=== PATIENT | female | born 1930 | race Caucasian/White ===

== ENCOUNTER → 2017-11-18 | Outpatient (CLI) | payer MEDICARE ==
[2014-04-10 16:21] VITALS: BMI 31.2
[~2017-11-18] MED LIST: ACE325 PO; ACET500T68 PO; ACYC5CRE5 TOP; AML5 PO; AMLO-96 PO; ARTO15 OP; CETI-176 PO; CETI10CA8 PO; CHOL200074 PO; CIPR-214 PO; CYCL-277 PO; CYCL-332 PO; CYCL10TA29 PO; DICL-195 PO; DICL100G3 TP; DICL100G39 TOP; DICL100G39 TP; DICL100T54 PO; DILT-100 PO; DIP25 PO; EPIN0.3P14 IM; ESCI5TAB10 PO; EST625 PO; FAMO20TA9 PO; FERR324T12 PO; FLUT12HF2 INH; HCTZ25 PO; HYDR-385 PO; IBU600 PO; INDO50CA92 PO; LANS30CA70 PO; LETR2.5T4 PO; LEV100 PO; LEVO-85 PO; LEVO100T95 PO; LIS10 PO; LOR5/325 PO; LORA-1455 PO; LORA-1456 PO; LOSA-54 PO; LOSA100T62 PO; LOSA100T67 PO; LUTE20TA PO; MELA1TAB27 PO; MELA1TAB5 ASDIRECTED; MELA5TAB6 PO; MOM BC; OLME1TAB49 PO; OMEP-218 PO; ONDA4TAB97 PO; ORPHENADRINE; OXYGENHOME INH; PAN40 PO; PANT40TA65 PO; PER PO; PIRO10CA62 PO; PRE10 PO; PRED1TAB17 PO; SULINDAC PO; TRA50 PO; TRAZ-156 PO; ULTRAM; ZESTORETIC PO; ZOLP-350 PO
[2017-11-18 13:27] LABS: PLATELET COUNT, AUTOMATED 270 K/uL (150-450)
== END ==
LOC: LAB 13:08
PROVIDERS: ATTEND Family Medicine
DX: I10 Essential (primary) hypertension (principal); E53.8 Deficiency of other specified B group vitamins; E03.9 Hypothyroidism, unspecified
CPT/HCPCS: 36415; 82040; 82247; 82310; 82374; 82435; 82565; 82607; 82947; 84075; 84132; 84155; 84295; 84443; 84450; 84460; 84520; 85025

== ENCOUNTER → 2018-07-21 | Outpatient (CLI) | payer MEDICARE ==
[2014-04-10 16:21] VITALS: BMI 31.2
[~2018-07-21] MED LIST changes: +AMLO-111 PO; +AMLO-113 PO; -AMLO-96 PO; +CLOT56.7 TOP; +FLUT16SP19 NS; -LOSA100T67 PO; +LOSA100T69 PO; -TRAZ-156 PO; +TRAZ50TA34 PO
[2018-07-21 16:09] LABS: PLATELET COUNT, AUTOMATED 261 K/uL (150-450)
== END ==
LOC: LAB 15:37
PROVIDERS: ATTEND Family Medicine
DX: E55.9 Vitamin D deficiency, unspecified (principal); I10 Essential (primary) hypertension; E03.9 Hypothyroidism, unspecified
CPT/HCPCS: 36415; 82040; 82247; 82306; 82310; 82374; 82435; 82565; 82947; 84075; 84132; 84155; 84295; 84443; 84450; 84460; 84520; 85025

== ENCOUNTER 2018-07-28 15:57 | Outpatient (RCR) | payer MEDICARE ==
[2014-04-10 16:21] VITALS: Wt 62.1 kg
[2018-07-28 15:58] VITALS: BP 183/85
--- NOTE | 2018-07-29 12:25 | [facility] ONCOLOGY NOTE ---
EVENT DATE: July 28, 2018 DIAGNOSES 1. Right breast cancer. 2. Hypertension. 3. Hypothyroidism. 4. Arthritis. 5. Varicose ulcer of the lower extremity. 6. Peripheral vascular disease. 7. Allergy. CHIEF COMPLAINT The patient is here today for followup of her right breast cancer. ONCOLOGY HISTORY PRESENTATION Palpable mass of the right breast. DIAGNOSTIC EVALUATION Radiographic workup and biopsy of the mass, done on March 16, 2014. STAGING WORKUP CT of the chest, abdomen, and pelvis showed 3.3-cm spiculated right breast mass with 1.8 cm of suspicious, wide axillary lymph node. The spiculated mass of the right breast was at 8 o'clock position. PROCEDURE Right breast mastectomy with right axillary lymph node dissection done on March 27, 2014. PATHOLOGY Positive for 3.3 x 2.5 x 3 cm invasive, poorly-differentiated, ductal carcinoma ER/TX-positive HER2/kenn-negative. One out of six lymph nodes came back positive for metastasis. STAGE Stage IIB (pT2p N1c M0) TREATMENT 1. Patient completed adjuvant radiation therapy to the right breast on June 08, 2014. 2. The patient received four cycles of adjuvant chemotherapy with PC regimen with Taxotere and cyclophosphamide between June 2014 through September 2014. 3. The patient had started treatment with letrozole 2.5 mg daily on September 20, 2014. HISTORY OF PRESENT ILLNESS Patient is here today for followup of her right breast cancer on adjuvant hormonal therapy with letrozole. She is doing fine currently. She is complaining of occasional nasal discharge and constipation. She has also left elbow pain. PAST MEDICAL HISTORY 1. Sleep apnea 2. Hypertension 3. Hypothyroidism PAST SURGICAL HISTORY 1. Breast biopsy and mastectomy, March of 2014 2. Bilateral knee replacement 3. Bilateral shoulder replacement 4. History of vein stripping 5. Hysterectomy 6. Thyroid surgery SOCIAL HISTORY Patient is a . She had four daughters and one son. She was a rancher. Denies abuse of tobacco, alcohol, or drugs. FAMILY HISTORY Father had stomach cancer, age of 55. Mother had stomach cancer, age of 76. Brother had prostate cancer, age of 75. Sister had breast cancer, age of 65. Brother had prostate cancer, 70s. Daughter had breast cancer, age of 45. CURRENT MEDICATIONS 1. Flexeril 5 mg 3 times daily as needed. 2. Epinephrine 0.3 mg syringe intramuscularly as needed. 3. Losartan 50 mg daily. 4. Tylenol 650 mg twice daily p.r.n. 5. Omeprazole 20 mg daily. 6. Synthroid 100 mcg daily. 7. Letrozole 2.5 mg daily. 8. Voltaren tablet once daily. 9. Voltaren gel topical once or twice daily. 10. Ativan p.r.n. for sleeping. ALLERGIES 1. CLINDAMYCIN 2. PENICILLIN 3. SULFA DRUGS 4. TETRACYCLINE 5. CEPHALEXIN 6. LATEX 7. ADHESIVES REVIEW OF SYSTEMS CONSTITUTIONAL: No appetite or weight change. No fever, chills or sweating. No recent infection. HEENT: Ears: No tinnitus or hearing problem. Nose: She has occasional nasal discharge. Throat: No sore throat or mouth ulcers. Eyes: No diplopia or visual changes. RESPIRATORY: She has cough with expectoration. CARDIOVASCULAR: No chest pain, orthopnea, or paroxysmal nocturnal dyspnea (PND). No edema. No palpitations. GASTROINTESTINAL: She has occasional constipation. GENITOURINARY: No hematuria or dysuria. NEUROLOGIC: She has numbness in the legs. MUSCULOSKELETAL: She has pain in the left below. HEMATOLOGIC/LYMPHATIC: She bruises easily. No enlarged lymph nodes. SKIN: No skin rash or lumps. PSYCHIATRIC: No anxiety or depression PHYSICAL EXAMINATION GENERAL: Well-developed female in no acute distress. VITAL SIGNS: Blood pressure 183/85, pulse 86 per minute, respirations 16 per minute, temperature 96.9, pulse oximetry 94% on room air. HEENT: Eyes: No icterus or conjunctivitis. Mouth and throat: No oral thrush or mucositis. NECK: Supple. No cervical or supraclavicular lymphadenopathy. LUNGS: Clear to auscultation and percussion bilaterally. HEART: Regular rate and rhythm. No gallops, murmurs, clicks, or rubs. ABDOMEN: Soft and lax. No tenderness. No hepatosplenomegaly. No masses. EXTREMITIES: No cyanosis, clubbing, or edema. LYMPHATICS: No peripheral lymphadenopathy. NEUROLOGICAL: Conscious, alert and oriented times three. No focal motor or sensory deficits. PSYCHIATRIC: Mood and affect appear normal. SKIN: No skin rash, bruise or purpuric eruption. DIAGNOSTIC DATA CBC shows a white count of 7.3 hemoglobin 13, hematocrit 38, platelet counts 261,000. Chem panel totally normal except sodium of 133, chloride 97, BUN 23, blood sugar 119. ASSESSMENT 1. Stage IIB (pT2 pN1 M0) right breast invasive ductal carcinoma 3.3 cm in diameter. ER/TX positive, HER2/kenn negative and one out of six lymph nodes came positive for metastasis. Patient completed adjuvant radiation therapy on June 08, 2014. She also received adjuvant chemotherapy with TC regimen with Taxotere and cyclophosphamide for four cycles, received between June 21, 2014 through August 22, 2014. She developed neuropathy from her chemotherapy, which was stopped. She started adjuvant hormonal therapy with letrozole 2.5 mg on September 20, 2014 and she is tolerating treatment very well since then. I am planning to continue letrozole for a total of five years. As the patient is over four years since her diagnosis, I am planning to start to see her every six months. I am planning to see her in six months with CBC, chem panel and CA 27- 29. 2. Osteopenia by DEXA scan done April 09, 2016 which showed osteopenia of the left hip. She is currently on calcium and vitamin D supplement. 3. 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 4. Hypothyroidism, on supplement. 5. Hypertension, on treatment. 6. Sleep apnea, on nocturnal oxygen. PLAN 1. Continue letrozole 2.5 mg daily. 2. Patient to return in six months with CBC, chem panel, CA 27-29 3. Patient to contact us for any new concerns or complaints. MTDD
== END 2018-08-31 10:30 | disposition home or self-care (01) ==
LOC: ONC 15:57
PROVIDERS: ATTEND Internal Medicine Hematology
DX: C50.911 Malignant neoplasm of unspecified site of right female breast (principal); Z17.0 Estrogen receptor positive status [ER+]; Z79.811 Long term (current) use of aromatase inhibitors; Z92.21 Personal history of antineoplastic chemotherapy; Z92.3 Personal history of irradiation; G62.0 Drug-induced polyneuropathy; E03.9 Hypothyroidism, unspecified; I10 Essential (primary) hypertension; R06.81 Apnea, not elsewhere classified; R05 Cough; Z79.899 Other long term (current) drug therapy
CPT/HCPCS: 99212

== ENCOUNTER → 2018-11-02 | Outpatient (CLI) | payer MEDICARE ==
[2014-04-10 16:21] VITALS: BMI 31.2
[~2018-11-02] MED LIST changes: -LOSA100T69 PO; +LOSA100T75 PO
--- NOTE | 2018-11-02 16:06 | RADIOLOGY IMAGING REPORT ---
FAC[place] [facility] [place] NAME: Charlotte Jensen : 1930 MR: [id number] V: [id number] EXAM DATE: ORDERING PHYSICIAN: MOHSEN JEROME TECHNOLOGIST: Location: [facility] - [place] Patient: Charlotte Jensen : 1930 Visit/Account:[id number] Date of Sevice: 11/02/2018 Exam type: SHOULDER MIN 2 VIEWS RIGHT, HUMERUS RIGHT Indication: Fall 2 weeks ago with right arm pain. History of right shoulder arthroplasty Comparison: Chest radiograph dated Findings: 3 views of the right shoulder. No acute osseous abnormality. Postoperative changes from right shoulder arthroplasty. There is bony remodeling of the glenoid, presumed postsurgical in etiology. No hardware complication identified. Mild degenerative changes of the acromioclavicular joint. Limited views of the right upper lung zone are unremarkable. 2 views of the right humerus. No acute osseous abnormality. Unremarkable appearance of right should er arthroplasty. No visualized joint effusion. IMPRESSION: 1. No acute osseous abnormality right shoulder or right humerus. 2. Grossly unremarkable appearance of right shoulder arthroplasty. Report Dictated By: Miguel A Tobar MD at 11/02/2018 3:55 PM Report E-Signed By: Miguel A Tobar MD at 11/02/2018 4:02 PM WSN:MART
--- NOTE | 2018-11-02 16:07 | RADIOLOGY IMAGING REPORT ---
[facility] PATIENT NAME: Charlotte Jensen : 1930 MR: [id number] V: [id number] EXAM DATE: ORDERING PHYSICIAN: MOHSEN JEROME TECHNOLOGIST: Location: [facility] Patient: Charlotte Jensen : 1930 Visit/Account:[id number] Date of Sevice: 11/02/2018 Exam type: SHOULDER MIN 2 VIEWS RIGHT, HUMERUS RIGHT Indication: Fall 2 weeks ago with right arm pain. History of right shoulder arthroplasty Comparison: Chest radiograph dated Findings: 3 views of the right shoulder. No acute osseous abnormality. Postoperative changes from right shoulder arthroplasty. There is bony remodeling of the glenoid, presumed postsurgical in etiology. No hardware complication identified. Mild degenerative changes of the acromioclavicular joint. Limited views of the right upper lung zone are unremarkable. 2 views of the right humerus. No acute osseous abnormality. Unremarkable appearance of right should er arthroplasty. No visualized joint effusion. IMPRESSION: 1. No acute osseous abnormality right shoulder or right humerus. 2. Grossly unremarkable appearance of right shoulder arthroplasty. Report Dictated By: Miguel A Tobar MD at 11/02/2018 3:55 PM Report E-Signed By: Miguel A Tobar MD at 11/02/2018 4:02 PM WSN:MART
== END ==
LOC: RAD 15:26
PROVIDERS: ATTEND Family Medicine
DX: Z96.611 Presence of right artificial shoulder joint (principal); W19.XXXA Unspecified fall, initial encounter

== ENCOUNTER 2018-12-06 21:10 | Emergency (ER) | payer MEDICARE ==
[2014-04-10 16:21] VITALS: Wt 64.6 kg
[~2018-12-06 21:10] MED LIST changes: -AMLO-111 PO; -AMLO-113 PO; +AMLO-125 PO; +AMLO-127 PO
--- NOTE | 2018-12-06 21:26 | ER Report ---
History and Physical Time Seen By MD: 21:26 HPI/ROS CHIEF COMPLAINT: Dizzy, vision changes HISTORY OF PRESENT ILLNESS: This is a 88-year-old female. She's been having some dizziness that started tonight. She is having some vision changes where things wobble in her vision and she feels she is tilted to the side. She does have a little bit of a vertigo feeling that seems to be worse when she turns the left. She does have a headache on the right side of her head as well. She feels generally weak but no focal weakness. Denies any slurred speech or trouble swallowing. No facial weakness. Denies any ringing in her ears or hearing changes. She denies any chest pain or palpitations. No shortness breath or cough. She did have some nausea. After she got dizzy she tried to drink a beer glass water need something but this made her nauseated. No vomiting. Denies any bowel changes or urinary problems. Allergies: Coded Allergies: Penicillins (Verified Allergy, Intermediate, RASH, 12/20/15) Sulfa (Sulfonamide Antibiotics) (Verified Allergy, Intermediate, RASH, 12/20/15) clindamycin (Verified Allergy, Intermediate, hives on back and trunk, 12/20/15) tetracycline (Verified Allergy, Intermediate, RASH, 12/20/15) adhesive (Unverified Allergy, Mild, RASH, 12/20/15) cephalexin (Unverified Allergy, Mild, RASH, 12/20/15) latex (Unverified Allergy, Mild, RASH, 12/20/15) Uncoded Allergies: BEE STINGS (Allergy, Mild, 10/30/07) TAPES (Allergy, Mild, SKIN IRRITATION, 01/04/08) STRAWBERRIES (Allergy, Unknown, 03/22/14) Home Meds Active Scripts Nitrofurantoin Monohyd/M-Cryst (MACROBID 100 MG CAPSULE) 100 Mg Capsule, 100 MG PO BID for 7 Days, #14 CAPSULE 0 Refills Prov:CHRIS HOPPER MD 12/07/18 Ondansetron 4 Mg Odt (ONDANSETRON 4 MG ODT) 4 Mg Tab.rapdis, 4 MG PO Q6H PRN for NAUSEA/VOMITING, #20 TAB 0 Refills Prov:CHRIS HOPPER MD 12/07/18 Meclizine Hcl (MECLIZINE HCL) 25 Mg Tablet, 25 MG PO Q8H PRN for DIZZINESS, #20 TAB 0 Refills Prov:CHRIS HOPPER MD 12/07/18 Amlodipine Besylate (AMLODIPINE BESYLATE) 10 Mg Tablet, 1 TAB PO QDAY for 90 Days, #90 TAB 4 Refills Prov:MOHSEN JEROME MD 11/14/18 Letrozole (LETROZOLE) 2.5 Mg Tablet, 1 TAB PO QDAY, #90 TAB 4 Refills Prov:MOHSEN JEROME MD 10/13/18 Cyclobenzaprine Hcl (CYCLOBENZAPRINE HCL) 10 Mg Tablet, 0.5-1 TAB PO QHS PRN for CRAMPING for 30 Days, #30 TAB 1 Refill Prov:MOHSEN JEROME MD 05/12/18 Losartan Potassium (LOSARTAN POTASSIUM) 100 Mg Tablet, 1 TAB PO QDAY for 90 Days, #90 TAB 4 Refills Prov:MOHSEN JEROME MD 04/21/18 Fluticasone Prop 50 Mcg Ns (FLONASE 50 MCG NS) 16 Gm Garita.susp, 2 SPRAYS NS QDAY for 30 Days, #1 BOT 3 Refills Prov:MOHSEN JEROME MD 03/17/18 Trazodone Hcl (TRAZODONE HCL) 50 Mg Tablet, 50 MG PO QHS for 90 Days, #45 TAB 2 Refills take 1/2 tab to 1 full tab at night for insominia Prov:MOHSEN JEROME MD 03/17/18 Levothyroxine Sodium (SYNTHROID) 100 Mcg Tablet, 1 TAB PO QDAY for 90 Days, #90 TAB 4 Refills Prov:MOHSEN JEROME MD 03/11/18 Diclofenac Sodium 1% Gel (VOLTAREN 1% GEL) 100 Gm Gel..gram., 2 G TOP HS, #30 TUBE 1 Refill Prov:MOHSEN JEROME MD 02/25/18 Clotrimazole (Alevazol) 56.7 Gm Oint...g., 1 GM TOP BID for 14 Days, #1 TUBE Prov:MOHSEN JEROME MD 02/01/18 Reported Medications Cholecalciferol (Vitamin D3) (VITAMIN D-3) 2,000 Unit Capsule, 1 CAP PO DAILY, CAPSULE 1/18/18 Oxygen (OXYGEN) Inha, 2 L INH HS, L 11/18/17 Melatonin (MELATONIN) 5 Mg Tablet, 1 TAB PO HS 11/18/17 Cetirizine Hcl (ZYRTEC) 10 Mg Tablet, 1 TAB PO PRN 05/24/17 Acetaminophen (TYLENOL EXTRA STRENGTH) 500 Mg Tablet, 1 TAB PO DAILY, TAB 05/24/17 Omeprazole Magnesium (PRILOSEC OTC) 20 Mg Tablet.dr, 1 TAB PO PRN, TAB 05/24/17 Reviewed Nurses Notes: Yes Hx Smoking: No Smoking Status: Never Smoker Hx Substance Use Disorder: No Hx Alcohol Use: No Constitutional Vital Sign - Last 24 Hours 12/06/18 12/06/18 12/06/18 12/06/18 21:18 21:25 21:27 21:30 Temp 98.2 Pulse 95 93 Resp 26 16 B/P (MAP) 160/80 (106) 160/80 155/76 (102) Pulse Ox 90 89 O2 Delivery Room Air 12/06/18 12/06/18 12/06/18 12/06/18 21:40 21:55 22:00 22:10 Pulse 93 92 92 Resp 17 28 22 B/P (MAP) 168/98 (121) Pulse Ox 87 87 89 12/06/18 12/06/18 12/06/18 12/06/18 22:25 22:30 22:30 22:40 Pulse ??? 88 Resp 11 B/P (MAP) 181/94 (123) O2 Flow Rate 2.0 12/06/18 12/06/18 12/06/18 12/06/18 22:52 22:54 22:54 22:55 Pulse 83 89 Resp 18 9 B/P (MAP) 150/65 (93) 150/65 (93) 155/79 (104) 161/78 (105) Pulse Ox 89 93 O2 Delivery Room Air 12/06/18 12/06/18 12/06/18 12/06/18 23:00 23:01 23:01 23:15 Pulse ??? 91 89 ??? Resp 10 18 18 B/P (MAP) 161/78 (105) 155/79 (104) Pulse Ox 84 88 90 O2 Delivery Room Air Room Air 2/5/19 2/5/19 2/6/19 2/6/19 23:30 23:45 00:00 00:15 Pulse ? B/P (MAP) ???/??? (1664) ???/??? (1664) 12/07/18 00:30 Pulse ??? B/P (MAP) ???/??? (1664) Intake and Output 12/06/18 12/06/18 12/07/18 15:00 23:00 07:00 Intake Total 500 ml Balance 500 ml Physical Exam General Appearance: The patient is alert. No acute distress. Eyes: Pupils are equal, round. No pallor, injection or icterus. ENT: Mucous membranes are moist. Normal oral mucosa. Posterior oropharynx is normal. Tympanic membranes are normal. Neck: Supple and non tender. Respiratory: Lungs are clear to auscultation. There are no retractions or accessory muscle use. Cardiovascular: Regular rate and rhythm. No murmurs, gallops or rubs. Normal capillary refill. No edema. Gastrointestinal: Abdomen is soft and non tender. Nondistended. No masses or organomegaly. Normal active bowel sounds. Neurological: Alert and oriented x3. Cranial nerves with eye exam as noted above. No facial droop. Tongue is symmetric and palate symmetric. Normal facial sensation. Normal visual gaspar by confrontation. She does have a little bit of nystagmus with right lateral gaze. This is horizontal in nature, no vertical nystagmus. Extremities have normal sensation and motor function and strength. Normal coordination. Hips exam equivocal. Negative Shoshoni-Hallpike maneuver. Skin: Warm and dry. No rashes. Musculoskeletal: Extremities are nontender. No tenderness in palpation of the cervical, thoracic and lumbar spine. DIFFERENTIAL DIAGNOSIS: After history and physical exam, differential diagnosis was considered for dizziness and visual changes of uncertain etiology. Equivocal physical exam testing. Offered MRI and the patient elected to go ahead with this. Medical Decision Making Data Points Result Diagram: 12/06/18213712/06/182137 Laboratory Hematology Test 12/06/18 21:38 12/06/18 22:30 Red Blood Count 4.54 M/uL (4.17-5.56) Mean Corpuscular Volume 92.6 fL (80.0-96.0) Mean Corpuscular Hemoglobin 31.0 pg (26.0-33.0) Mean Corpuscular Hemoglobin Concent 33.5 g/dL (32.0-36.0) Red Cell Distribution Width 14.1 % (11.5-14.5) Mean Platelet Volume 7.9 fL (7.2-11.1) Neutrophils (%) (Auto) 92.5 % (39.4-72.5) Lymphocytes (%) (Auto) 3.9 % (17.6-49.6) Monocytes (%) (Auto) 3.3 % (4.1-12.4) Eosinophils (%) (Auto) 0.1 % (0.4-6.7) Basophils (%) (Auto) 0.2 % (0.3-1.4) Nucleated RBC Relative Count (auto) 0.2 /100WBC Neutrophils # (Auto) 11.4 K/uL (2.0-7.4) Lymphocytes # (Auto) 0.5 K/uL (1.3-3.6) Monocytes # (Auto) 0.4 K/uL (0.3-1.0) Eosinophils # (Auto) 0.0 K/uL (0.0-0.5) Basophils # (Auto) 0.0 K/uL (0.0-0.1) Nucleated RBC Absolute Count (auto) 0.02 K/uL Sodium Level 129 mmol/L (137-145) Potassium Level 4.0 mmol/L (3.5-5.0) Chloride Level 96 mmol/L (98-107) Carbon Dioxide Level 26 mmol/L (22-31) Blood Urea Nitrogen 21 mg/dl (7-18) Creatinine 0.80 mg/dl (0.52-1.04) Glomerular Filtration Rate Calc > 60.0 Random Glucose 166 mg/dl (75-110) Calcium Level 9.4 mg/dl (8.4-10.2) Total Bilirubin 0.5 mg/dl (0.2-1.3) Aspartate Amino Transf (AST/SGOT) 29 U/L (0-35) Alanine Aminotransferase (ALT/SGPT) 22 U/L (0-56) Alkaline Phosphatase 79 U/L (0-126) Total Protein 7.8 g/dl (6.3-8.2) Albumin 4.6 g/dl (3.5-5.0) Urine Color Yellow Urine Clarity Cloudy Urine pH 7.0 pH (4.8-9.5) Urine Specific [place] 1.011 Urine Protein 100 mg/dL (NEGATIVE) Urine Glucose (UA) Negative mg/dL (NEGATIVE) Urine Ketones Trace mg/dL (NEGATIVE) Urine Blood Negative (NEGATIVE) Urine Nitrite Negative (NEGATIVE) Urine Bilirubin Negative (NEGATIVE) Urine Urobilinogen Negative mg/dL (0.2-1.9) Urine Leukocyte Esterase Small (NEGATIVE) Urine RBC 1 /HPF (0-2/HPF) Urine WBC 70 /HPF (0-5/HPF) Urine Squamous Epithelial Cells None /LPF (</=FEW) Urine Bacteria Few /HPF (NONE-FEW) Urine Mucus None /HPF (NONE-FEW) Chemistry Test 12/06/18 21:38 12/06/18 22:30 White Blood Count 12.4 k/uL (4.5-11.0) Red Blood Count 4.54 M/uL (4.17-5.56) Hemoglobin 14.1 g/dL (12.0-16.0) Hematocrit 42.0 % (34.0-47.0) Mean Corpuscular Volume 92.6 fL (80.0-96.0) Mean Corpuscular Hemoglobin 31.0 pg (26.0-33.0) Mean Corpuscular Hemoglobin Concent 33.5 g/dL (32.0-36.0) Red Cell Distribution Width 14.1 % (11.5-14.5) Platelet Count 258 K/uL (150-450) Mean Platelet Volume 7.9 fL (7.2-11.1) Neutrophils (%) (Auto) 92.5 % (39.4-72.5) Lymphocytes (%) (Auto) 3.9 % (17.6-49.6) Monocytes (%) (Auto) 3.3 % (4.1-12.4) Eosinophils (%) (Auto) 0.1 % (0.4-6.7) Basophils (%) (Auto) 0.2 % (0.3-1.4) Nucleated RBC Relative Count (auto) 0.2 /100WBC Neutrophils # (Auto) 11.4 K/uL (2.0-7.4) Lymphocytes # (Auto) 0.5 K/uL (1.3-3.6) Monocytes # (Auto) 0.4 K/uL (0.3-1.0) Eosinophils # (Auto) 0.0 K/uL (0.0-0.5) Basophils # (Auto) 0.0 K/uL (0.0-0.1) Nucleated RBC Absolute Count (auto) 0.02 K/uL Glomerular Filtration Rate Calc > 60.0 Calcium Level 9.4 mg/dl (8.4-10.2) Total Bilirubin 0.5 mg/dl (0.2-1.3) Aspartate Amino Transf (AST/SGOT) 29 U/L (0-35) Alanine Aminotransferase (ALT/SGPT) 22 U/L (0-56) Alkaline Phosphatase 79 U/L (0-126) Total Protein 7.8 g/dl (6.3-8.2) Albumin 4.6 g/dl (3.5-5.0) Urine Color Yellow Urine Clarity Cloudy Urine pH 7.0 pH (4.8-9.5) Urine Specific [place] 1.011 Urine Protein 100 mg/dL (NEGATIVE) Urine Glucose (UA) Negative mg/dL (NEGATIVE) Urine Ketones Trace mg/dL (NEGATIVE) Urine Blood Negative (NEGATIVE) Urine Nitrite Negative (NEGATIVE) Urine Bilirubin Negative (NEGATIVE) Urine Urobilinogen Negative mg/dL (0.2-1.9) Urine Leukocyte Esterase Small (NEGATIVE) Urine RBC 1 /HPF (0-2/HPF) Urine WBC 70 /HPF (0-5/HPF) Urine Squamous Epithelial Cells None /LPF (</=FEW) Urine Bacteria Few /HPF (NONE-FEW) Urine Mucus None /HPF (NONE-FEW) Urinalysis Test 12/06/18 22:30 Urine Color Yellow Urine Clarity Cloudy Urine pH 7.0 pH (4.8-9.5) Urine Specific [place] 1.011 Urine Protein 100 mg/dL (NEGATIVE) Urine Glucose (UA) Negative mg/dL (NEGATIVE) Urine Ketones Trace mg/dL (NEGATIVE) Urine Blood Negative (NEGATIVE) Urine Nitrite Negative (NEGATIVE) Urine Bilirubin Negative (NEGATIVE) Urine Urobilinogen Negative mg/dL (0.2-1.9) Urine Leukocyte Esterase Small (NEGATIVE) Urine RBC 1 /HPF (0-2/HPF) Urine WBC 70 /HPF (0-5/HPF) Urine Squamous Epithelial Cells None /LPF (</=FEW) Urine Bacteria Few /HPF (NONE-FEW) Urine Mucus None /HPF (NONE-FEW) EKG/Imaging Imaging Exam type: MR BRAIN/BRAIN STEM W/ & W/O CON Clinical Indication: Dizziness and visual disturbance. Comparison: None Technique: Multiplanar and multisequence MRI images of the brain were obtained without and with Result: DWI and ADC are negative for acute ischemia. The normally visualized major intracranial flow-voids are preserved. There is normal walton-white matter differentiation. Moderate T2 hyperintensities within the periventricular and subcortical white matter which are nonspecific however likely represent chronic microvascular ischemic changes.. The ventricles and sulci are within normal limits for age. There is no evidence of intra cerebral hemorrhage, intracranial mass, or extraaxial fluid collection. There are no enhancing lesions. The visualized midline structures including the corpus callosum, pituitary, and brainstem are within normal limits. The visualized bony structures and soft tissues are within normal limits. The visualized orbits are within normal limits. The visualized paranasal sinuses are clear. Impression: 1. No acute findings of the brain. 2. Moderate T2 hyperintensities within the periventricular and subcortical white matter which are nonspecific however likely represent chronic microvascular ischemic changes. ED Course/Re-evaluation Clinical Indication for ER IV: Hydration, IV Access ED Course Lab studies show mild elevated white count. Her sodium is little low but it always is and this is about baseline, perhaps just a little bit lower. She does show signs of urinary tract infection on urinalysis and urine cultures been ordered. MRI was negative. This appears to be either combination of urinary tract infection and I inner ear problem such as labyrinthitis or positional vertigo. Recommended meclizine, Zofran, and we'll give her Macrobid for her urinary infection based on her allergies to multiple antibiotics. Decision to Disposition Date: Dec 07, 2018 Decision to Disposition Time: 00:28 Depart Departure Latest Vital Signs Vital Signs Date Time Temp Pulse Resp B/P (MAP) Pulse Ox O2 Delivery O2 Flow Rate FiO2 12/07/18 00:30 ?/??? (1665) 12/06/18 23:01 18 90 Room Air 12/06/18 22:30 2.0 12/06/18 21:27 98.2 Impression: Primary Impression: Urinary tract infection Additional Impression: Vertigo Condition: Improved Disposition: HOME OR SELF-CARE Referrals: MOHSEN JEROME MD (PCP) New Scripts Nitrofurantoin Monohyd/M-Cryst (MACROBID 100 MG CAPSULE) 100 Mg Capsule 100 MG PO BID for 7 Days, #14 CAPSULE 0 Refills Prov: CHRIS HOPPER MD 12/07/18 Ondansetron 4 Mg Odt (ONDANSETRON 4 MG ODT) 4 Mg Tab.rapdis 4 MG PO Q6H PRN for NAUSEA/VOMITING, #20 TAB 0 Refills Prov: CHRIS HOPPER MD 12/07/18 Meclizine Hcl (MECLIZINE HCL) 25 Mg Tablet 25 MG PO Q8H PRN for DIZZINESS, #20 TAB 0 Refills Prov: CHRIS HOPPER MD 12/07/18 Patient Instructions: Urinary Tract Infection in Women (ED), Vertigo (ED) Additional Instructions: You have a urinary tract infection. Take the antibiotic Macrobid 100mg twice a day for 7 days. Follow-up with your regular doctor for re-evaluation in the next 1-2 weeks. Dizziness is likely caused by a viral infection causing inflammation in the inner ear. Take Meclizine 25mg every 8 hours as needed for dizziness. Take Zofran 4mg, one every 6 hours as needed for nausesa or vomiting. Problem Qualifiers Primary Impression: Urinary tract infection Urinary tract infection type: acute cystitis Hematuria presence: without hematuria Qualified Codes: N30.00 - Acute cystitis without hematuria CHRIS HOPPER MD Dec 06, 2018 21:26
[2018-12-06] MEDS ORDERED: NS(*) 0.9% 500 ML BAG 500 ML IV ONE (22:15)
[2018-12-06] MEDS ORDERED: PANTOPRAZOLE SOD 40 MG IV VIAL IVP ONE (23:00)
[2018-12-06] MEDS ORDERED: MAG HYD/AL HYD/SIMETH 30ML UDC PO ONE (23:00)
[2018-12-06 23:07] LABS: PLATELET COUNT, AUTOMATED 258 K/uL (150-450)
[2018-12-06] MEDS ORDERED: GADOBENATE 529MG/1ML 15ML VIAL IVP ONE (23:30)
--- NOTE | 2018-12-07 00:10 | RADIOLOGY IMAGING REPORT ---
FACILITY: [facility] - [place] PATIENT NAME: Charlotte Jensen : 1930 MR: [id number] V: [id number] EXAM DATE: ORDERING PHYSICIAN: CHRIS HOPPER TECHNOLOGIST: Location: [facility] [place] Patient: Charlotte Jensen : 1930 Visit/Account:[id number] Date of Sevice: 12/06/2018 Exam type: MR BRAIN/BRAIN STEM W/ & W/O CON Clinical Indication: Dizziness and visual disturbance. Comparison: None Technique: Multiplanar and multisequence MRI images of the brain were obtained without and with Result: DWI and ADC are negative for acute ischemia. The normally visualized major intracranial flow-voids ar e preserved. There is normal walton-white matter differentiation. Moderate T2 hyperintensities within the periventri cular and subcortical white matter which are nonspecific however likely represent chronic microvascul ar ischemic changes.. The ventricles and sulci are within normal limits for age. There is no eviden ce of intra cerebral hemorrhage, intracranial mass, or extraaxial fluid collection. There are no enh ancing lesions. The visualized midline structures including the corpus callosum, pituitary, and brainstem are within normal limits. The visualized bony structures and soft tissues are within normal limits. The visualized orbits are w ithin normal limits. The visualized paranasal sinuses are clear. Impression: 1. No acute findings of the brain. 2. Moderate T2 hyperintensities within the periventricular and subcortical white matter which are non specific however likely represent chronic microvascular ischemic changes. Report Dictated By: Miguel A Tobar MD at 12/07/2018 12:01 AM Report E-Signed By: Miguel A Tobar MD at 12/07/2018 12:05 AM WSN:[id number]
[2018-12-07] MEDS ORDERED: MECL25TA9 PO (00:31)
[2018-12-07] MEDS ORDERED: ONDA4TAB9 PO (00:31)
[2018-12-07] MEDS ORDERED: NITR-105 PO (00:31)
[2018-12-07] MEDS ORDERED: NITROFURANTOIN MONO 100 MG PO ONE (00:45)
[2018-12-07] MEDS ORDERED: MECLIZINE HCL 12.5 MG TAB TH PO ONE (00:45)
[2018-12-07] MEDS ORDERED: ONDANSETRON 4 MG ODT TH SL ONE (00:45)
== END 2018-12-07 00:41 | disposition home or self-care (01) ==
LOC: ER 21:35
DX: N30.00 Acute cystitis without hematuria (principal); R42 Dizziness and giddiness
CPT/HCPCS: 70553; 81001; 85025; 96361; 96374; 99284; A9270; A9577; C9113; J7040; Q0162; 82040; 82247; 82310; 82374; 82435; 82565; 82947; 84075; 84132; 84155; 84295; 84450; 84460; 84520; S0119

== ENCOUNTER → 2018-12-27 | Outpatient (CLI) | payer MEDICARE ==
[2014-04-10 16:21] VITALS: BMI 31.2
[~2018-12-27] MED LIST changes: +MECL25TA9 PO; +NITR-105 PO; +ONDA4TAB9 PO
[2018-12-27 15:44] LABS: PLATELET COUNT, AUTOMATED 234 K/uL (150-450)
== END ==
LOC: LAB 15:27
PROVIDERS: ATTEND Family Medicine
DX: E87.1 Hypo-osmolality and hyponatremia (principal)
CPT/HCPCS: 36415; 82310; 82374; 82435; 82565; 82947; 84132; 84295; 84520; 85025